=== PATIENT | female | born 1950 | race Asian ===

== ENCOUNTER 2024-03-15 12:38 | Day surgery (SDC) | payer MEDICARE, OTHER ==
[~2024-03-15] VITALS: Ht 160 cm; Wt 45.9 kg
[~2024-03-15 12:38] MED LIST: CELEBREX 200MG200 MG PO; LR 1,000 ML IV SCH; MULTIPLE VITAMI1 CAP PO; Ondansetron 4 MG/2 ML VIAL IV PRN
[2024-03-15] MEDS ORDERED: PRILOTC PO (13:29)
[2024-03-15] MEDS ORDERED: FOSAMAX 70MG TA70 MG PO (13:30)
[2024-03-15] MEDS ORDERED: RT ADVAIR 228 DISKUS IH (13:30)
[2024-03-15] MEDS ORDERED: PRINIVIL5 MG PO (13:31)
[2024-03-15 14:18] VITALS: BP 115/85; PULSE 90; TEMP 98.2
[2024-03-15] MEDS ORDERED: Lidocaine PF 2% (20 MG/ML) 5 ML VIAL ONE (14:28)
[2024-03-15 15:10] VITALS: BP 114/88; PULSE 77; TEMP 97.8
--- NOTE | 2024-03-15 15:10 | NUR ---
[id number] Generation Technician ID used [id number]- Pt arrived to [facility] - pt ambulated from cart to chair with standby assist 1515 - pt tolerating po intake well 1520 - at bedside 1536 - MD Solitario at bedside 1540 - pt and verbalize understanding discharge education 1545 - pt dressed self 1550 - pt escorted out via wheelchair with to vehicle
[2024-03-15 15:25] VITALS: BP 124/89; PULSE 67
[2024-03-15 15:33] VITALS: BP 133/92; PULSE 67
== END 2024-03-15 15:56 | disposition home or self-care (01) ==
LOC: SDCO 12:38
DX: D12.8 Benign neoplasm of rectum (principal); R19.7 Diarrhea, unspecified; F17.210 Nicotine dependence, cigarettes, uncomplicated
CPT/HCPCS: J2704; J7120